=== PATIENT | male | born 1995 | race Caucasian/White ===

== ENCOUNTER 2018-09-09 19:43 | Emergency (ER) | payer SELFPAY ==
[~2018-09-09] VITALS: Ht 170.2 cm; Wt 128.0 kg
[2018-09-09] MEDS ORDERED: TETANUS, DIPHTHERIA, PERTUSSIS VAC/PF 0.5ML (>7YR OLD) IM ONE (22:00)
[2018-09-09] MEDS ORDERED: HYDROCODONE/ACETAMINOPHEN 5/325MG TABLET PO ONE (22:15)
[2018-09-09] MEDS ORDERED: BACITRACIN ZINC OINT UDPKT TOP ONE (22:45)
[2018-09-09] MEDS ORDERED: LIDOCAINE HCL/PF 1% 10 MG/ML 5ML VIAL IJ ONE (22:45)
[2018-09-09 23:29] VITALS: BP 163/94
== END 2018-09-09 23:30 | disposition home or self-care (01) ==
LOC: ER 19:43
DX: S62.633B Displaced fracture of distal phalanx of left middle finger, initial encounter for open fracture (principal); W23.1XXA Caught, crushed, jammed, or pinched between stationary objects, initial encounter; Y93.89 Activity, other specified; Y92.89 Other specified places as the place of occurrence of the external cause; Y99.8 Other external cause status
CPT/HCPCS: 29130; 73140; 90471; 90715; 99283; A4217; J3490; Z7610

== ENCOUNTER 2018-09-15 10:53 | Emergency (ER) | payer SELFPAY ==
[~2018-09-15] VITALS: Ht 170.2 cm; Wt 127.0 kg
[2018-09-15 13:02] VITALS: BP 160/99
== END 2018-09-15 13:04 | disposition home or self-care (01) ==
LOC: ER 11:01
DX: S61.412D Laceration without foreign body of left hand, subsequent encounter (principal); X58.XXXD Exposure to other specified factors, subsequent encounter
CPT/HCPCS: 99281

== ENCOUNTER 2018-09-24 18:53 | Emergency (ER) | payer SELFPAY ==
[~2018-09-24] VITALS: Ht 170.2 cm; Wt 130.0 kg
[2018-09-24 19:10] VITALS: BP 154/69
== END 2018-09-24 21:20 | disposition home or self-care (01) ==
LOC: ER 21:16
DX: S61.213D Laceration without foreign body of left middle finger without damage to nail, subsequent encounter (principal); X58.XXXD Exposure to other specified factors, subsequent encounter
CPT/HCPCS: 99281